=== PATIENT | male | born 1950 | race African-American/Black ===

== ENCOUNTER 2020-10-31 09:57 | Inpatient (IN) | payer MEDICARE, MEDICAID ==
[~2020-10-31] VITALS: Ht 177.8 cm; Wt 84.4 kg
[2020-10-31] MEDS ORDERED: LEVETIRACETAM 1000MG PREMIX 100 ML IV ONE (10:15)
[2020-10-31] MEDS ORDERED: SODIUM CHLORIDE 0.9% 1,000 ML IV ONE (10:15)
[2020-10-31 10:44] LABS: BASOPHILS % 0.4 % (0.0-2.0); EOSINOPHILS % 3.4 % (0.0-5.0); HEMATOCRIT. 43.9 % (42.0-52.0); HEMOGLOBIN. 14.5 g/dL (14.0-18.0); MEAN CORPUSCULAR HEMOGLOBIN 27.5 pg (28.0-32.0); MEAN CORPUSCULAR VOLUME 83.2 fL (80.0-94.0); MEAN PLATELET VOLUME 8.7 fl (7.4-10.4); MONOCYTES % 8.3 % (2.0-8.0); NEUTROPHILS % 71.9 % (40.0-76.0); PLATELET 190 x1000/uL (130-400); RED BLOOD CELL COUNT 5.28 mill/uL (4.7-6.1)
[2020-10-31 10:50] LABS: CHLORIDE 108 mEq/L (98-107)
[2020-10-31 10:54] LABS: ETHANOL BLOOD < 10 mg/dL
[2020-10-31] MEDS ORDERED: MIDAZOLAM HCL 2 MG/2 ML VIAL ONE (10:57)
[2020-10-31] MEDS ORDERED: DEXTROSE 50% WATER 50ML SYRINGE IV ONE (11:45)
[2020-10-31] MEDS ORDERED: IPRATROPIUM/ALBUTEROL 0.5-3(2.5)MG/3ML NEB HHN PRN (12:45)
[2020-10-31] MEDS ORDERED: DOCUSATE SODIUM 100MG CAPSULE PO PRN (12:45)
[2020-10-31] MEDS ORDERED: ACETAMINOPHEN 325MG TABLET PO PRN ×2 (12:45)
[2020-10-31] MEDS ORDERED: ONDANSETRON HCL 4MG/2ML INJ IV PRN (12:45)
[2020-10-31] MEDS ORDERED: LORAZEPAM 2MG/ML CPJ IV PRN (12:45)
[2020-10-31] MEDS ORDERED: HYDROCODONE/ACETAMINOPHEN 5/325MG TABLET PO PRN (12:45)
[2020-10-31] MEDS ORDERED: CLONIDINE 0.1MG TABLET PO PRN (12:45)
[2020-10-31 12:46] LABS: CLARITY URINE CLEAR (CLEAR); COLOR URINE DARK YELLOW (YELLOW); KETONES URINE TRACE (NEGATIVE); LEUKOCYTE ESTERASE URINE TRACE (NEGATIVE); NITRITE URINE NEGATIVE (NEGATIVE); OCCULT BLOOD URINE NEGATIVE (NEGATIVE); PROTEIN URINE 1+ (NEGATIVE); SPECIFIC GRAVITY URINE 1.029 (1.005-1.030)
[2020-10-31] MEDS ORDERED: LEVETIRACETAM 500 MG in SODIUM CHLORIDE 0.9% 100 ML IV SCH (13:00)
[2020-10-31] MEDS ORDERED: NALOXONE HCL 0.4MG/ML VIAL IV PRN (13:00)
[2020-10-31 13:32] LABS: *AMPHETAMINES SCREEN URINE NEGATIVE (NEGATIVE); *COCAINE SCREEN URINE PRESUMTIVE POSITIVE (NEGATIVE); CANNABINOID URINE SCREEN NEGATIVE (NEGATIVE); METHADONE URINE SCREEN NEGATIVE (NEGATIVE); OPIATES URINE SCREEN NEGATIVE (NEGATIVE); PHENCYCLIDINE URINE SCREEN PRESUMTIVE POSITIVE (NEGATIVE)
[2020-10-31 13:33] LABS: *BARBITURATES SCREEN URINE NEGATIVE (NEGATIVE); *BENZODIAZEPINES SCREEN URINE NEGATIVE (NEGATIVE)
[2020-10-31] MEDS ORDERED: MIDAZOLAM HCL 2 MG/2 ML VIAL IM ONE (14:45)
[2020-10-31 17:07] LABS: BG BASE EXCESS -3.4 mmol/L (-2.0-2.0); BG CARBOXYHEMOGLOBIN 2.3 % (0.5-1.5); BG DEOXYHEMOGLOBIN 5.2 % (0.0-5.0); BG FRACTION INSPIRED OXYGEN 36; BG HCO3 ACT 21.7 mmol/L (22.0-26.0); BG METHEMOGLOBIN 0.2 % (0.0-1.5); BG OXYGEN SATURATION 94.7 % (92.0-98.5); BG OXYHEMOGLOBIN 92.3 % (94.0-97.0); BG PCO2 39.3 mmHg (35.0-45.0); BG PH 7.359 (7.350-7.450); BG PO2 75.2 mmHg (75.0-100.0); BG SAMPLE SITE RIGHT RADIAL; BG TOTAL HEMOGLOBIN 15.1 g/dL (12.0-18.0); BG VENT MODE NASAL CANNULA
[2020-10-31] MEDS: LORAZEPAM 0.5MG TABLET PO PRN ×2 (17:33→21:42)
[2020-10-31] MEDS: LEVETIRACETAM 500MG PREMIX 100 ML IV SCH (20:33)
[2020-10-31 23:20] VITALS: BP 96/67
[2020-11-01] VITALS (9 sets, daily range): BP systolic 85–114; BP diastolic 59–76
[2020-11-01 07:40] LABS: BASOPHILS % 0.4 % (0.0-2.0); EOSINOPHILS % 3.5 % (0.0-5.0); HEMATOCRIT. 43.1 % (42.0-52.0); LYMPHOCYTES % 18.5 % (20.0-50.0); MEAN CORPUSCULAR VOLUME 82.8 fL (80.0-94.0); MEAN PLATELET VOLUME 8.9 fl (7.4-10.4); MONOCYTES % 5.4 % (2.0-8.0); NEUTROPHILS % 72.2 % (40.0-76.0); PLATELET 173 x1000/uL (130-400); RED CELL DISTRIBUTION WIDTH 16.2 % (11.6-14.6)
[2020-11-01 08:28] LABS: CHLORIDE 112 mEq/L (98-107)
[2020-11-01] MEDS: LEVETIRACETAM 500MG PREMIX 100 ML IV SCH ×2 (09:34→21:43)
[2020-11-01] MEDS ORDERED: PHENYTOIN SODIUM 1000MG in SODIUM CHLORIDE 0.9% 100ML IV SCH ×2 (14:00→20:00)
[2020-11-02] VITALS (12 sets, daily range): BP systolic 84–130; BP diastolic 31–80
[2020-11-02] MEDS: PHENYTOIN SODIUM EXTENDED 100MG CAPSULE PO SCH ×3 (05:53→21:34)
[2020-11-02] MEDS: LEVETIRACETAM 500MG TABLET PO SCH ×2 (08:10→21:34)
[2020-11-02] MEDS: ENOXAPARIN 40MG/0.4ML SYR SUBCUT SCH (13:55)
[2020-11-03] VITALS (12 sets, daily range): BP systolic 90–126; BP diastolic 35–87
[2020-11-03] MEDS: PHENYTOIN SODIUM EXTENDED 100MG CAPSULE PO SCH ×3 (06:25→21:11)
[2020-11-03 06:49] LABS: BASOPHILS % 0.6 % (0.0-2.0); EOSINOPHILS % 8.1 % (0.0-5.0); HEMATOCRIT. 44.9 % (42.0-52.0); LYMPHOCYTES % 27.5 % (20.0-50.0); MEAN CORPUSCULAR HEMOGLOBIN 27.4 pg (28.0-32.0); MEAN CORPUSCULAR VOLUME 81.6 fL (80.0-94.0); MEAN PLATELET VOLUME 9.1 fl (7.4-10.4); MONOCYTES % 8.9 % (2.0-8.0); NEUTROPHILS % 54.9 % (40.0-76.0); PLATELET 147 x1000/uL (130-400); RED CELL DISTRIBUTION WIDTH 15.7 % (11.6-14.6)
[2020-11-03 07:02] LABS: CHLORIDE 110 mEq/L (98-107)
[2020-11-03] MEDS: ENOXAPARIN 40MG/0.4ML SYR SUBCUT SCH (09:03)
[2020-11-03] MEDS: LEVETIRACETAM 500MG TABLET PO SCH ×2 (09:04→21:11)
[2020-11-04] VITALS (8 sets, daily range): BP systolic 94–111; BP diastolic 60–91
[2020-11-04] MEDS: PHENYTOIN SODIUM EXTENDED 100MG CAPSULE PO SCH ×2 (05:53→14:54)
[2020-11-04 06:45] LABS: BASOPHILS % 0.6 % (0.0-2.0); EOSINOPHILS % 9.4 % (0.0-5.0); HEMATOCRIT. 46.8 % (42.0-52.0); HEMOGLOBIN. 15.4 g/dL (14.0-18.0); LYMPHOCYTES % 25.3 % (20.0-50.0); MEAN CORPUSCULAR HEMOGLOBIN 27.1 pg (28.0-32.0); MEAN CORPUSCULAR VOLUME 82.2 fL (80.0-94.0); MONOCYTES % 7.7 % (2.0-8.0); RED BLOOD CELL COUNT 5.69 mill/uL (4.7-6.1); RED CELL DISTRIBUTION WIDTH 15.6 % (11.6-14.6)
[2020-11-04 06:48] LABS: CHLORIDE 108 mEq/L (98-107)
[2020-11-04] MEDS: LEVETIRACETAM 500MG TABLET PO SCH (08:23)
[2020-11-04] MEDS: ENOXAPARIN 40MG/0.4ML SYR SUBCUT SCH (08:23)
[2020-11-04] MEDS ORDERED: PHEN100C4 PO (12:12)
[2020-11-04] MEDS ORDERED: KEPP500 PO (12:12)
[2020-11-04 13:50] LABS: MEAN PLATELET VOLUME 9.3 fl (7.4-10.4); PLATELET 124 x1000/uL (130-400)
== END 2020-11-04 18:30 | disposition home or self-care (01) | DRG 917 ==
LOC: ER 10:17 → EDBD 10:17 → EDBEDREQSVC 15:02 → MICUSO 17:13 → 3WST 22:15
PROVIDERS: ADMIT Internal Medicine; ATTEND Internal Medicine
DX: T40.5X1A Poisoning by cocaine, accidental (unintentional), initial encounter (principal); G92 Toxic encephalopathy; R56.9 Unspecified convulsions; F16.90 Hallucinogen use, unspecified, uncomplicated; R00.1 Bradycardia, unspecified; F17.200 Nicotine dependence, unspecified, uncomplicated; G93.89 Other specified disorders of brain; T40.991A Poisoning by other psychodysleptics [hallucinogens], accidental (unintentional), initial encounter; F14.90 Cocaine use, unspecified, uncomplicated; Z79.899 Other long term (current) drug therapy; Y92.89 Other specified places as the place of occurrence of the external cause
CPT/HCPCS: 36415; 36600; 70551; 71045; 80048; 80053; 80185; 80305; 80320; 81003; 82375; 82805; 83880; 84484; 85025; 93005; 93306; 99285; J1165; J1650; J1953; J2250; J7030; J7040; J7050; G0480